=== PATIENT | male | born 1995 | race Caucasian/White ===

== ENCOUNTER 2023-11-10 21:18 | Emergency (ER) | payer SELFPAY ==
[2023-11-10 21:28] VITALS: BP 153/91
--- NOTE | 2023-11-10 22:09 | ED.MUSCINJ ---
HPI-Injury
General
Chief Complaint: Musculo-Skeletal Complaint
Source: patient
Exam Limitations: none
Time Seen by Provider: 11/10/23 22:03
Nursing documentation reviewed up to this point in time: agreed with
Travel History
Have you had any contact with someone who has COVID-19?: No
Do you have any symptoms of coronavirus? Fever > 100 degrees, chills, cough, shortness of breath, sore throat, loss of taste or smell, muscle aches, or headache?: No
History of Present Illness-Injury
Is this injury a work related problem?: No
Is pt an associate of [facility]?: No
Initial Injury comments:
Patient states he punched a wall in anger this AM. COmplains of pain to right lat hand. Brought self to ED for eval. Reports he is no longer angery. Denies SILINH,
Past History
Past History
ED Past Medical History: Asthma, HTN and Psychiatric (Anxiety)
ED Past Surgical History: Other (Gynecomastia)
Social History
Tobacco: Former smoker
Alcohol: Occasional
Drug: Marijuana
Personal: Single
Living: alone
Employment: Not employed
Family History
Family History: Other (Noncontributory)
Review of Systems
Review of Systems
Allergies reviewed?: Yes
All Other Systems: ROS reviewed and negative except as documented in HPI and ROS
Constitutional: Reports no symptoms
Musculoskeletal: Reports joint pain (Pain to right hand 5th MCP joint)
Skin: Reports no symptoms
Neurological: Reports no symptoms
Psychiatric: Reports no symptoms
Musculoskeletal Injury Exam
Musculoskeletal Injury Exam
Right Lateral Hand:
Pain with Movement?: Moderate
Tender to palpation?: Moderate
Soft tissue swelling?: Mild
External deformity and angulation?: None
Joint effusion?: None
Contusion?: Moderate
Hematoma-local bleeding into tissue?: None
Strain- Sprain- Tear (Connective tissue injury)?: Moderate
Crepitus with movement?: No
Joint instability?: No
Malalignment/deformity?: No
Range of motion: Limited
Distal skin color and temperature: normal-warm & good color
Capillary Refill: normal
Normal distal neurovascular exam?: Yes
Peripheral Pulses: radial (right): 3+
Phy Exam
General Physical Exam
General Presentation: well appearing and no apparent distress
General age: appears stated age
General Skin: warm and dry
General Habitus: normal
General Mental: alert
Musculoskeletal Exam
Musculoskeletal Exam: neuro vasc intact
Skin Exam
Skin Exam: normal color, warm/dry and no rash
Psychiatric Exam
Psychiatric Exam: normal mood/affect
Injury Course
Orders/Labs/Results
Orders:
Orders
11/10/23 21:30
Hand, Right 3 View [CR Hand - Right Min 3 Views] Urgent
Comment:
Reason For Exam: punched wall, pain swelling to outer hand
11/10/23 22:07
Sling Right-Treatment ONCE
Ulnar Gutter Right-Treatment ONCE
*Radiology
Radiology exam reviewed: radiology read reviewed
*Pulse Oximetry
Patient hypoxic: no
*Critical Care Note
Total Time (30-74mins, 75-104mins- exclusive of procedures): Not Applicable
ED Attending Note
-
Portions of this chart may have been created with voice recognition software.� Occasional wrong word or��sound alike� substitutions may have occurred due to the inherent limitations of voice recognition software.
Discharge Plan
Departure
Patient Disposition: Home (Routine Discharge)
Date of Disposition: 11/10/23
Time of Disposition: 22:07
Patient with high blood pressure during this ER visit?: No
Condition: Good
Covid-19: Not Applicable
Discharge Problem:
Boxer's metacarpal fracture, neck, closed
Instructions: Boxer's Fracture (DC), Ibuprofen, How to Use a Shoulder Sling, Using Cold for Pain, Splint Care
Prescriptions:
No Action
metoprolol succinate [Toprol XL] 25 mg tablet extended release 24 hr
50 mg PO DAILY
escitalopram oxalate [Lexapro] 10 mg Tablet
10 mg PO DAILY
pantoprazole [Protonix] 40 mg tablet,delayed release (DR/EC)
40 mg PO DAILY Qty: 30 0RF
sucralfate [Carafate] 100 mg/mL suspension
10 ml PO QID PRN (Reason: CHEST PAIN/GERD) Qty: 400 0RF
Referrals:
Rinku Wang MD [Active] - Call in 1-3 days for appt
Interventions
Interventions:
*Risk Screen - Suicide Last Done: 11/10/23 21:31
*General Assessment Last Done: 11/10/23 21:31
*Neglect/Abuse Screening Last Done: 11/10/23 21:31
*ED COVID-19 Vaccine History Last Done: 11/10/23 21:31
== END 2023-11-10 23:10 | disposition home or self-care (01) ==
LOC: EMR 21:18
PROVIDERS: EMERGENCY PHYSICIAN Emergency Medicine; FAMILY PHYSICIAN Student in an Organized Health Care Education/Training Program
DX: S62.336A Displaced fracture of neck of fifth metacarpal bone, right hand, initial encounter for closed fracture (principal); W22.01XA Walked into wall, initial encounter; Z87.891 Personal history of nicotine dependence
CPT/HCPCS: 99283; 29125; 73130

== ENCOUNTER 2023-11-12 05:41 | Emergency (ER) | payer SELFPAY ==
[2023-11-12 05:55] VITALS: BP 136/86
--- NOTE | 2023-11-12 07:24 | ED.GENMED ---
History of Present Illness
General
Chief Complaint: Musculo-Skeletal Complaint
Source: patient
Exam Limitations: none
Time Seen by Provider: 11/12/23 06:43
Travel History
Have you had any contact with someone who has COVID-19?: No
Do you have any symptoms of coronavirus? Fever > 100 degrees, chills, cough, shortness of breath, sore throat, loss of taste or smell, muscle aches, or headache?: No
History of Present Illness
History of Present Illness:
20-year-old male who presents for worsening pain in his right hand. Diagnosed with fifth metatarsal fracture yesterday. Patient states that the pain started no radiation proximally. No numbness. No tingling.
Past History
Past History
ED Past Medical History: Asthma, HTN and Psychiatric (Anxiety)
ED Past Surgical History: Other (Gynecomastia)
Social History
Tobacco: Former smoker
Alcohol: Occasional
Drug: Marijuana
Personal: Single
Living: alone
Employment: Not employed
Family History
Family History: Other (Noncontributory)
Phy Exam
Physical Exam
Physical Exam:
CONSTITUTIONAL Vital signs reviewed, Patient alert and oriented to person, place and time. Well-appearing
HEAD atraumatic, normocephalic.
EYES eyelids normal to inspection, Extraocular muscles intact, Conjunctiva normal, Sclera normal.
NECK normal range of motion, Trachea midline, no jugular venous distention.
RESP no respiratory distress
BACK No obvious deformities
UPPER EXTREMITY arrives with splint. Splint was taken down. There is ecchymosis noted to the dorsum of the hand distally along the MCP regions in the third fourth and fifth digits. He does have normal distal cap refill. Has normal sensation.
There is moderate swelling
LOWER EXTREMITY Gross range of motion normal, Gross motor strength normal
NEURO Speech normal, No focal motor deficits include, Mario coma scale 15, Memory normal, Cranial Nerves intact to screening exam.
SKIN Skin warm, dry, and normal in color.
PSYCHIATRIC Patient oriented to person place and time, Normal affect.
Course
Vital Signs
Initial and Last Documented VS:
Initial Vital Signs
Temp Pulse Resp BP Pulse Ox
98.5 F 67 14 136/86 98
11/12/23 05:55 11/12/23 05:55 11/12/23 05:55 11/12/23 05:55 11/12/23 05:55
Last Documented Vital Signs
Temp Pulse Resp BP Pulse Ox
98.5 F 67 14 136/86 98
11/12/23 05:55 11/12/23 05:55 11/12/23 05:55 11/12/23 05:55 11/12/23 05:55
Procedures
Other
Indication for procedure:: Pain
Procedure completed by: Dr. Garcia
Consent form signed: No
Additional Procedure:
Ulnar nerve block performed. Landmarks were identified about 1 cm proximal to the crease of the right wrist. 2 mL of lidocaine with epinephrine as well as 2 mL of bupivacaine were injected in the area of the ulnar nerve with a lateral approach.
Skin was properly prepared in a sterile fashion. Patient tolerated procedure well. Aspiration prior to injection. Patient felt significant pain relief
MDM/Problems Addressed
MDM/Problems Addressed:
Fifth metacarpal fracture, pain
*Pulse Oximetry
Patient hypoxic: no
*Critical Care Note
Total Time (30-74mins, 75-104mins- exclusive of procedures): Not Applicable
Data Reviewed
Review of Other/Old Records Reveals: Other (X-rays from yesterday reviewed)
Source: patient
Prescriptions/Medications Considered But Not Given:
Consider narcotic pain medication but given ulnar nerve block
Patient Management
Escalation/DeEscalation of care consider admission/obs:
Splint was removed and rewrapped. It was rewrapped with a slightly estate agent wrap. Ulnar nerve block was performed patient has significant improvement. Recommended ice and elevation. Already has orthopedic follow-up planned
ED Attending Note
-
Portions of this chart may have been created with voice recognition software.� Occasional wrong word or��sound alike� substitutions may have occurred due to the inherent limitations of voice recognition software.
Discharge Plan
Departure
Patient Disposition: Home (Routine Discharge)
Date of Disposition: 11/12/23
Time of Disposition: 07:29
Patient with high blood pressure during this ER visit?: No
Discharge Problem:
Closed fracture of fifth metacarpal bone
Instructions: Splint Care
Prescriptions:
No Action
metoprolol succinate [Toprol XL] 25 mg tablet extended release 24 hr
50 mg PO DAILY
escitalopram oxalate [Lexapro] 10 mg Tablet
10 mg PO DAILY
pantoprazole [Protonix] 40 mg tablet,delayed release (DR/EC)
40 mg PO DAILY Qty: 30 0RF
sucralfate [Carafate] 100 mg/mL suspension
10 ml PO QID PRN (Reason: CHEST PAIN/GERD) Qty: 400 0RF
Referrals:
Mark William MD, Resident [Family Provider] -
Activity Restrictions/Additional Instructions:
Please ice and elevate your injured hand. Follow-up with orthopedics as planned. Return immediately for numbness, tingling, worsening pain or any other concerns.
Interventions
Interventions:
*General Assessment Last Done: 11/12/23 05:55
*Neglect/Abuse Screening Last Done: 11/12/23 05:55
ED- Fall Risk Assessment Last Done: 11/12/23 05:55
*ED COVID-19 Vaccine History Last Done: 11/12/23 05:55
[2023-11-12 07:30] VITALS: BMI 27.6
[2023-11-12 07:37] VITALS: BP 129/79
== END 2023-11-12 07:40 | disposition home or self-care (01) ==
LOC: EMR 05:41
PROVIDERS: EMERGENCY PHYSICIAN Emergency Medicine; FAMILY PHYSICIAN Student in an Organized Health Care Education/Training Program
DX: S62.306A Unspecified fracture of fifth metacarpal bone, right hand, initial encounter for closed fracture (principal); X58.XXXA Exposure to other specified factors, initial encounter; J45.909 Unspecified asthma, uncomplicated; I10 Essential (primary) hypertension; F41.9 Anxiety disorder, unspecified; Z87.891 Personal history of nicotine dependence
CPT/HCPCS: 99282; 29125